=== PATIENT | female | born 1985 ===

== ENCOUNTER 2017-02-12 14:01 | Inpatient (IN) | payer OTHER ==
[~2017-02-12] VITALS: Ht 162.6 cm; Wt 75.3 kg
[2017-02-12] MEDS ORDERED: CLOPIDOGREL BISULFATE 75 MG TAB PO ONE (15:00)
[2017-02-12 15:19] LABS: Basophils # (auto) 0 uL; Basophils % (auto) 0.3 % (0.0-2.0); Eosinophils # (auto) 0.1 uL; Eosinophils % (auto) 1.7 % (0.0-7.0); Hematocrit 37.3 % (36.0-46.0); Hemoglobin 12.1 g/dL (12.2-16.2); Lymphocytes # (auto) 1.8 uL; Lymphocytes % (auto) 27.6 % (10.0-50.0); Mean Corpuscular Hemoglobin 27.5 pg (28.0-32.0); Mean Corpuscular Hgb Conc. 32.6 g/dL (32.0-36.0); Mean Corpuscular Volume 84.4 fL (80.0-100.0); Mean Platelet Volume 7.7 fL (7.4-10.4); Monocytes # (auto) 0.4 uL; Monocytes % (auto) 5.4 % (0.0-12.0); Neutrophils # (auto) 4.3 uL; Platelet Count (auto) 452 10^3/uL (140-450); White Blood Cell 6.6 10^3/uL (4.4-10.8)
[2017-02-12 15:22] LABS: INR 1.15 (0.9-1.15); Partial Thromboplastin Time 30.6 sec (22.64-33.71)
[2017-02-12 15:24] LABS: Prothrombin Time 12.6 sec (9.37-12.3)
[2017-02-12] MEDS ORDERED: ENOXAPARIN SOD 80 MG/0.8ML SYRINGE SC ONE ×2 (15:30→16:15)
[2017-02-12 15:49] LABS: Albumin 3.4 g/dL (3.4-5.0); Alkaline Phosphatase 82 U/L (45-117); Anion Gap 7 (5-15); Aspartate Aminotransferase 13 U/L (15-37); BUN/Creatinine Ratio 13.2; Bilirubin, Total 0.4 mg/dL (0.2-1.0); Blood Urea Nitrogen 7 mg/dL (7-18); Calcium 8.6 mg/dL (8.5-10.1); Carbon Dioxide 27 mmol/L (21-32); Chloride 105 mmol/L (98-107); GFR African American 173 mL/min; GFR Non-African American 143 mL/min; Glucose 101 mg/dL (74-106); Potassium 3.5 mmol/L (3.5-5.1); Sodium 139 mmol/L (136-145); Total Protein 7.2 g/dL (6.4-8.2)
[2017-02-12] MEDS ORDERED: ONDANSETRON HCL 4 MG/2 ML VIAL IV PRN (16:15)
[2017-02-12] MEDS ORDERED: HYDROcodone-ACET 5/325MG TAB PO PRN (16:15)
[2017-02-12] MEDS ORDERED: APIXABAN 5 MG TAB PO ONE (16:15)
[2017-02-12 17:28] VITALS: BP 109/64
[2017-02-12] MEDS ORDERED: LORA-154 (18:46)
[2017-02-12] MEDS ORDERED: AMIT10TA6 (18:46)
[2017-02-12] MEDS ORDERED: DOCU-94 PO (20:16)
[2017-02-12] MEDS ORDERED: HYDR-4663 PO (20:16)
[2017-02-12] MEDS ORDERED: SENN-58 PO (20:16)
[2017-02-12] MEDS ORDERED: METH-532 PO (20:16)
[2017-02-12] MEDS ORDERED: NAP500T PO (20:17)
[2017-02-12 22:00] VITALS: BP 104/53
[2017-02-12] MEDS: NAPROXEN 500 MG TAB PO SCH (22:54)
[2017-02-12] MEDS: METHOCARBAMOL 500 MG TAB PO SCH (22:55)
[2017-02-12] MEDS: DOCUSATE SOD 100 MG CAP PO SCH (22:55)
[2017-02-12] MEDS: SENNA 8.6 MG TAB PO SCH (22:55)
[2017-02-13 05:30] VITALS: BP 102/60
[2017-02-13] MEDS: APIXABAN 5 MG TAB PO SCH ×2 (07:18→17:42)
[2017-02-13] MEDS: METHOCARBAMOL 500 MG TAB PO SCH ×3 (07:18→21:52)
[2017-02-13] MEDS: ENOXAPARIN SOD 80 MG/0.8ML SYRINGE SC SCH ×2 (07:18→17:42)
[2017-02-13 09:00] VITALS: BP 102/69
[2017-02-13] MEDS: SENNA 8.6 MG TAB PO SCH ×2 (09:45→21:52)
[2017-02-13] MEDS: NAPROXEN 500 MG TAB PO SCH ×2 (09:45→21:52)
[2017-02-13] MEDS: DOCUSATE SOD 100 MG CAP PO SCH ×2 (09:46→21:52)
[2017-02-13 10:05] LABS: Urine Bilirubin Negative (Negative); Urine Blood TRACE /uL (Negative); Urine Color Yellow (Yellow); Urine Glucose Normal (Normal); Urine Ketone Negative (Negative); Urine Mucus FEW (None Seen); Urine Nitrite Negative (Negative); Urine RBC 8 /hpf (0 - 4); Urine Squamous Epithelial Cell FEW /hpf (<5); Urine Urobilinogen Normal (Negative); Urine pH 6.5 (5.0-8.0)
[2017-02-13 12:55] VITALS: BP 101/56
[2017-02-13 17:00] VITALS: BP 98/62
[2017-02-13 22:00] VITALS: BP 101/54
[2017-02-14] MEDS: METHOCARBAMOL 500 MG TAB PO SCH (05:19)
[2017-02-14] MEDS: APIXABAN 5 MG TAB PO SCH (05:19)
[2017-02-14] MEDS: ENOXAPARIN SOD 80 MG/0.8ML SYRINGE SC SCH (05:19)
[2017-02-14 06:03] VITALS: BP 105/58
[2017-02-14 08:00] VITALS: BP 106/61
[2017-02-14 08:53] VITALS: BP 106/61
[2017-02-14] MEDS: NAPROXEN 500 MG TAB PO SCH (10:00)
[2017-02-14] MEDS: DOCUSATE SOD 100 MG CAP PO SCH (10:30)
[2017-02-14] MEDS: SENNA 8.6 MG TAB PO SCH (10:30)
[2017-02-14 13:00] VITALS: BP 105/56
== END 2017-02-14 14:00 | disposition home or self-care (01) | DRG 197 ==
LOC: ER 14:09 → OVERFLOW 14:10 → WEST WING 21:04
PROVIDERS: ADMIT Internal Medicine; ATTEND Internal Medicine
DX: I82.432 Acute embolism and thrombosis of left popliteal vein (principal); S32.511A Fracture of superior rim of right pubis, initial encounter for closed fracture; Z53.29 Procedure and treatment not carried out because of patient's decision for other reasons; V89.2XXA Person injured in unspecified motor-vehicle accident, traffic, initial encounter; Y93.89 Activity, other specified; Y92.89 Other specified places as the place of occurrence of the external cause; Y99.8 Other external cause status; Z79.899 Other long term (current) drug therapy; Z79.891 Long term (current) use of opiate analgesic
CPT/HCPCS: 36415; 71010; 72170; 80053; 81001; 84484; 84702; 85025; 85610; 85730; 96372

== ENCOUNTER 2019-05-27 01:22 | Emergency (ER) | payer MEDICAID, OTHER ==
[~2019-05-27] VITALS: Ht 162.6 cm; Wt 78.5 kg
[~2019-05-27 01:22] MED LIST: DOCU-94 PO; HYDR-4833 PO; METH-532 PO; NAP500T PO; SENN-58 PO
[2019-05-27 01:27] VITALS: BP 125/82
== END 2019-05-27 05:01 | disposition left against medical advice (07) ==
LOC: ER 01:26
DX: R21 Rash and other nonspecific skin eruption (principal); Z53.21 Procedure and treatment not carried out due to patient leaving prior to being seen by health care provider